=== PATIENT | male | born 1980 | race Caucasian/White ===

== ENCOUNTER 2018-09-20 06:34 | Inpatient (IN) | payer BC, OTHER ==
[2018-09-20] MEDS ORDERED: ACETAMINOPHEN 1000 MG/100 ML VIAL (NON FORMULARY) IVPB ONE ×2 (07:52→20:06)
[2018-09-20] MEDS ORDERED: SODIUM CHLORIDE 1,000 ML IV STA ×2 (07:52→14:53)
[2018-09-20] MEDS ORDERED: METOCLOPRAMIDE HCL INJECTION 10 MG/2 ML VIAL IVPB ONE (07:52)
--- NOTE | 2018-09-20 07:53 | PDOC ---
History of Present Illness - General Chief Complaint: Nausea/Vomiting Stated Complaint: VOMITING Time Seen by Provider: 09/20/18 07:46 History Source: Patient - History of Present Illness Timing/Duration: other Past History - Past Medical History Allergies/Adverse Reactions: Allergies Allergy/AdvReac Type Severity Reaction Status Date / Time No Known Allergies Allergy Verified 09/20/18 07:23 COPD: No Other medical history: DENIES - Immunization History Immunization Up to Date: No - Suicide/Smoking/Psychosocial Hx Smoking History: Never smoked Hx Alcohol Use: No Drug/Substance Use Hx: No Review of Systems - Review of Systems Constitutional: Yes: Fever, Malaise HEENTM: No: Ear Pain, Throat Pain Respiratory: Yes: Cough, Shortness of Breath. No: Hemoptysis Cardiac (ROS): No: Chest Pain ABD/GI: Yes: Nausea, Vomiting. No: Diarrhea, Abdominal cramping : No: Dysuria Neurological: Yes: Headache, Dizziness *Physical Exam - Vital Signs Last Vital Signs Temp Pulse Resp BP Pulse Ox 100.8 F H 104 H 18 133/81 96 09/20/18 07:25 09/20/18 07:25 09/20/18 07:25 09/20/18 07:25 09/20/18 07:25 - Physical Exam General Appearance: Yes: Appropriately Dressed, Mild Distress HEENT: positive: Normal ENT Inspection, Normal Voice, TMs Normal, Pharynx Normal. negative: Scleral Icterus (R), Scleral Icterus (L) Neck: positive: Supple. negative: Tender, Lymphadenopathy (R), Lymphadenopathy (L) Respiratory/Chest: positive: Lungs Clear, Normal Breath Sounds. negative: Respiratory Distress Cardiovascular: positive: S1, S2, Tachycardia Gastrointestinal/Abdominal: positive: Soft. negative: Tender Integumentary: positive: Dry, Warm Neurologic: positive: Fully Oriented, Alert, Normal Mood/Affect ED Treatment Course - LABORATORY CBC & Chemistry Diagram: 09/20/18 08:40 09/20/18 08:40 Medical Decision Making - Medical Decision Making 09/20/18 07:47 38-year-old male, denies any pmhx, here with malaise with headache, dizziness, dry cough, nausea, vomiting and fever x 1 1/-2 weeks. States he was seen in urgent care 5 days ago and diagnosed with viral syndrome. Of note, states no flu test was done. Since that visit, he has developed nausea, vomiting and fever, highest 102 F and so returns today for evaluation. Also c/o SOB now, no CP, hemoptysis, body aches, sore throat, ear pain, neck pain, photophobia, rash , facial pain or rhinorrhea. No recent travel or known sick contacts. see exam ? viral illness, r/o flu vs PNA, unlikely meningitis Exam remarkable for ill beth w/ low grade fever and mild tachycardia -pain control -antiemetic -IVF -labs -CXR -dispo pending 09/20/18 07:57 09/20/18 10:41 Leukocytosis to 18 w/ possible early infiltrate to RLL per report. Will start IV abx for CAP and admit at this time *DC/Admit/Observation/Transfer Diagnosis at time of Disposition: Pneumonia Qualifiers: Pneumonia type: due to unspecified organism Laterality: right Lung location: lower lobe of lung Qualified Code(s): J18.1 - Lobar pneumonia, unspecified organism - Discharge Dispostion Condition at time of disposition: Fair Decision to Admit order: Yes - Referrals - Patient Instructions - Post Discharge Activity
[2018-09-20 09:00] LABS: BASO % 0.5 % (0-2.0); EOS % 0.3 % (0-4.5); HEMATOCRIT 42.4 % (35.4-49); LYMPH % 10.4 % (8-40); MCH 28.6 pg (25.7-33.7); MCHC 33.1 g/dl (32.0-35.9); MEAN CELL VOLUME 86.5 fl (80-96); MEAN PLT VOLUME 7.5 fl (7.5-11.1); MONO % 10.2 % (3.8-10.2); NEUT % 78.6 % (42.8-82.8); PLATELET COUNT 362 K/MM3 (134-434); RDW 13.3 % (11.9-15.9); WHITE BLOOD COUNT 18.6 K/mm3 (4.0-10.0)
[2018-09-20 09:05] LABS: EPI CELLS 8.5 /HPF (0-5/HPF); URINE APPEARANCE CLOUDY; URINE BACTERIA 1.4 /hpf (NEGATIVE); URINE BILIRUBIN 1+ (NEGATIVE); URINE CASTS 46 /lpf (0-8); URINE COLOR DK YELLOW; URINE GLUCOSE (UA) NEGATIVE (NEGATIVE); URINE KETONE 1+ (NEGATIVE); URINE LEUK ESTERASE NEGATIVE (NEGATIVE); URINE NITRITE NEGATIVE (NEGATIVE); URINE PROTEIN 2+ (NEGATIVE); URINE RBC 5 /hpf (0-4); URINE WBC 3 /hpf (0-5)
[2018-09-20] MEDS ORDERED: METOCLOPRAMIDE HCL INJECTION 10 MG/2 ML VIAL ONE (09:13)
[2018-09-20] MEDS ORDERED: ACETAMINOPHEN INJECTION 100 ML IVPB ONE (09:14)
[2018-09-20 09:27] LABS: ALBUMIN 3.7 g/dl (3.4-5.0); ALK PHOS 88 U/L (45-117); ANION GAP 8 MMOL/L (8-16); BILIRUBIN,TOTAL 0.4 mg/dL (0.2-1); BLOOD UREA NITROGEN 13 mg/dL (7-18); CALCIUM 9.1 mg/dL (8.5-10.1); CHLORIDE 102 mmol/L (98-107); CO2 28 mmol/L (21-32); CREATININE 1.4 mg/dL (0.55-1.3); GLUCOSE,RANDOM 117 mg/dL (74-106); LIPASE 102 U/L (73-393); POTASSIUM 4.2 mmol/L (3.5-5.1); SGOT/AST 31 U/L (15-37); SGPT/ALT 32 U/L (13-61); SODIUM 137 mmol/L (136-145); TOT PROT 8.3 g/dl (6.4-8.2)
[2018-09-20] MEDS ORDERED: AZITHROMYCIN IVPB 500 MG in DEXTROSE 5%-WATER - 250 ML IVPB ONE (10:38)
[2018-09-20] MEDS ORDERED: CEFTRIAXONE 1 GM in DEXTROSE 5%-WATER - 50 ML IVPB ONE (10:38)
[2018-09-20] MEDS ORDERED: AZITHROMYCIN IVPB 500 MG/250 ML BAG IVPB ONE (10:44)
[2018-09-20] MEDS ORDERED: CEFTRIAXONE 1 GM/50 ML BAG ONE (10:45)
[2018-09-20] MEDS ORDERED: ALBUTEROL SO4 2.5/IPRATROPIUM 0.5 INH SOL 3 ML VIAL.NEB. NEB PRN (11:34)
--- NOTE | 2018-09-20 11:41 | HP ---
CHIEF COMPLAINT: cough, fever. sob, vomiting PCP: none HISTORY OF PRESENT ILLNESS: 38 y/o m with no pmh came to hospital with complaint of cough, sob and vomiting since three days. pt states that on e week ago he has sore throat with fever, headache and post nasal drip which kept ion getting worse over the period of time and 4 days ago he went to urgent care where he was diagnosed with viral infection but over last last three days he has developed non productive cough, vomiting and fever is getting worse, 102.6 documented in home. Pt also reports sob and now gets tired after walking few steps. Denies chest pain and palpitations.Pt also states that from last three days he is unable to keep any thing inside and is vomiting clear liquid which is not relevant with bouts of cough. Denies eating out, pain abdomen, diarrhoea. Denies abdominal distension. Patient states he is passing flatus. 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 Also reports headache when he coughs. Last time went to work on Wednesday. ER course was notable for: (1)cbc, cmp, (2) iv fluid 1l (3)blood culture Recent Travel: no PAST MEDICAL HISTORY: none PAST SURGICAL HISTORY: none Social History: Smoking:no Alcohol:no Drugs: no Family History: mother has breast cancer father healthy Allergies No Known Allergies Allergy (Verified 09/20/18 07:23) HOME MEDICATIONS: REVIEW OF SYSTEMS CONSTITUTIONAL: Absent: fever, chills, diaphoresis, generalized weakness, malaise, loss of appetite, weight change HEENT: Absent: rhinorrhea, nasal congestion, throat pain, throat swelling, difficulty swallowing, mouth swelling, ear pain, eye pain, visual changes CARDIOVASCULAR: Absent: chest pain, syncope, palpitations, irregular heart rate, lightheadedness , peripheral edema RESPIRATORY: Absent: cough, shortness of breath, dyspnea with exertion, orthopnea, wheezing, stridor, hemoptysis GASTROINTESTINAL: Absent: abdominal pain, abdominal distension, nausea, vomiting, diarrhea, constipation, melena, hematochezia GENITOURINARY: Absent: dysuria, frequency, urgency, hesitancy, hematuria, flank pain, genital pain MUSCULOSKELETAL: Absent: myalgia, arthralgia, joint swelling, back pain, neck pain SKIN: Absent: rash, itching, pallor ENDOCRINE: Absent: unexplained weight gain, unexplained weight loss, heat intolerance, cold intolerance NEUROLOGIC: Absent: headache, focal weakness or paresthesias, PSYCHIATRIC: Absent: anxiety, depression, PHYSICAL EXAMINATION Vital Signs - 24 hr 09/20/18 09/20/18 07:25 11:17 Temperature 100.8 F H 99.6 F Pulse Rate 104 H Pulse Rate [ 83 Left Apical] Respiratory 18 18 Rate Blood Pressure 133/81 Blood Pressure 134/83 [Left Arm] O2 Sat by Pulse 96 96 Oximetry (%) GENERAL: Awake, alert, and fully oriented, in no acute distress. HEAD: Normal with no signs of trauma. EYES: Pupils equal, round and reactive to light, extraocular movements intact, EARS, NOSE, THROAT: oropharynx clear without exudates. dry mucous membranes. nose congested, no pressure on sinuses. NECK: Normal range of motion, supple without lymphadenopathy, JVD, or masses. LUNGS: Breath sounds equal, clear to auscultation bilaterally. No wheezes, crackels present at right lower base No accessory muscle use. HEART: Regular rate and rhythm, normal S1 and S2 without murmur, rub or gallop. ABDOMEN: Soft, nontender, not distended, normoactive bowel sounds, no guarding, no rebound, no masses. MUSCULOSKELETAL: Normal range of motion at all joints. No bony deformities or tenderness. No CVA tenderness. UPPER EXTREMITIES: 2+ pulses, warm, well-perfused. No cyanosis. No clubbing. No peripheral edema. LOWER EXTREMITIES: 2+ pulses, warm, well-perfused. No calf tenderness. No peripheral edema. NEUROLOGICAL: Normal speech. Normal gait. PSYCHIATRIC: Cooperative. Good eye contact. SKIN: Warm, dry, Laboratory Results - last 24 hr 09/20/18 09/20/18 09/20/18 08:40 08:40 08:40 WBC 18.6 H RBC 4.90 Hgb 14.0 Hct 42.4 MCV 86.5 MCH 28.6 MCHC 33.1 RDW 13.3 Plt Count 362 MPV 7.5 Absolute Neuts (auto) 14.6 H Neutrophils % 78.6 Lymphocytes % 10.4 Monocytes % 10.2 Eosinophils % 0.3 Basophils % 0.5 Nucleated RBC % 0 Sodium 137 Potassium 4.2 Chloride 102 Carbon Dioxide 28 Anion Gap 8 BUN 13 Creatinine 1.4 H Creat Clearance w eGFR 56.13 Random Glucose 117 H Calcium 9.1 Total Bilirubin 0.4 AST 31 ALT 32 Alkaline Phosphatase 88 Total Protein 8.3 H Albumin 3.7 Lipase 102 Urine Color Dk yellow Urine Appearance Cloudy Urine pH 6.0 Ur Specific [place] 1.043 H Urine Protein 2+ H Urine Glucose (UA) Negative Urine Ketones 1+ H Urine Blood Negative Urine Nitrite Negative Urine Bilirubin 1+ H Urine Urobilinogen 1.0 Ur Leukocyte Esterase Negative Urine WBC (Auto) 3 Urine RBC (Auto) 5 Urine Casts (Auto) 46 U Pathogenic Cast Auto U Epithel Cells (Auto) 8.5 U Sm Round Cell (Auto) None seen Urine Bacteria (Auto) 1.4 Influenza A (Rapid) Influenza B (Rapid) 09/20/18 08:40 WBC RBC Hgb Hct MCV MCH MCHC RDW Plt Count MPV Absolute Neuts (auto) Neutrophils % Lymphocytes % Monocytes % Eosinophils % Basophils % Nucleated RBC % Sodium Potassium Chloride Carbon Dioxide Anion Gap BUN Creatinine Creat Clearance w eGFR Random Glucose Calcium Total Bilirubin AST ALT Alkaline Phosphatase Total Protein Albumin Lipase Urine Color Urine Appearance Urine pH Ur Specific [place] Urine Protein Urine Glucose (UA) Urine Ketones Urine Blood Urine Nitrite Urine Bilirubin Urine Urobilinogen Ur Leukocyte Esterase Urine WBC (Auto) Urine RBC (Auto) Urine Casts (Auto) U Pathogenic Cast Auto U Epithel Cells (Auto) U Sm Round Cell (Auto) Urine Bacteria (Auto) Influenza A (Rapid) Negative Influenza B (Rapid) Negative ASSESSMENT/PLAN: 38 y/o m with no pmh came to hospital with complaint of cough, sob and vomiting since three days found to have sepsis from CAP Sepsis secondary to CAP or pneumonia post viral infection. elevated wbc, fever, infiltrate on xray, ankush Iv antibiotic azithromycin and ceftriaxone monitor vitals monitor intake/ output IV fluid as per sepsis protocol. Lactic acid pending. blood culture. urine antigen for legionella and strep incentive spirometry duoneb prn flonase for nasal congestion. ANKUSH likely prerenal as pt is vomiting as is unable to eat or drink from 2-3 days IV fluid avoid nephrotoxic drugs NSAID monitor cr No need for urine studies for now Vomiting likely viral zofran prn iv fluid full liquid diet and slowly advance as he tolerates Fluid: NS after boluses start 125 ml/hr electrolyte: repeat in am Nutrition: full liquid diet dvt pro: pt ambulatory, scd while resting Gi pro: ppi dispo: med surg Visit type - Emergency Visit Emergency Visit: Yes ED Registration Date: 09/20/18 Care time: The patient presented to the Emergency Department on the above date and was hospitalized for further evaluation of their emergent condition. - New Patient This patient is new to me today: Yes Date on this admission: 09/20/18 - Critical Care Critical Care patient: No
[2018-09-20] MEDS ORDERED: ONDANSETRON 4 MG/2 ML VIAL IVPB PRN (11:57)
[2018-09-20] MEDS: SODIUM CHLORIDE 1,000 ML IV SCH (13:13)
[2018-09-20] MEDS ORDERED: BENZOCAINE/MENTH/CETYLPYRD CL 1 EACH LOZENGE MM PRN (13:32)
--- NOTE | 2018-09-20 13:46 | EKG ---
Test Reason : Blood Pressure : / mmHG Vent. Rate : 089 BPM Atrial Rate : 089 BPM P-R Int : 140 ms QRS Dur : 094 ms QT Int : 358 ms P-R-T Axes : 052 025 011 degrees QTc Int : 435 ms NORMAL SINUS RHYTHM NORMAL ECG NO PREVIOUS ECGS AVAILABLE Confirmed by Ehsan Flores MD ([id number]) on 09/20/2018 1:46:19 PM Referred By: Confirmed By:Ehsan Flores MD
--- NOTE | 2018-09-20 14:53 | PN ---
Teaching Attending Note Name of Resident: Ulises Kendall ATTENDING PHYSICIAN STATEMENT I saw and evaluated the patient. I reviewed the resident's note and discussed the case with the resident. I agree with the resident's findings and plan as documented. SUBJECTIVE: Still feels lethargic, cough +, blood tinged sputum. Vomiting - no hematemesis. No abdominal pain. OBJECTIVE: Febrile, Tmax 100.8. Hemodynamically Stable Last Vital Signs Temp Pulse Resp BP Pulse Ox 100.2 F H 106 H 18 151/92 96 09/20/18 13:13 09/20/18 13:13 09/20/18 13:13 09/20/18 13:13 09/20/18 11:17 HEENT - Atraumatic, Normocephalic Heart - S1, S2, RRR Lungs - decreased air entry R base Abdomen - soft, non-tender. Bowel Sounds normal. Extremities - no edema, no calf tenderness Laboratory Results - last 24 hr 09/20/18 09/20/18 09/20/18 08:40 08:40 08:40 WBC 18.6 H RBC 4.90 Hgb 14.0 Hct 42.4 MCV 86.5 MCH 28.6 MCHC 33.1 RDW 13.3 Plt Count 362 MPV 7.5 Absolute Neuts (auto) 14.6 H Neutrophils % 78.6 Lymphocytes % 10.4 Monocytes % 10.2 Eosinophils % 0.3 Basophils % 0.5 Nucleated RBC % 0 Sodium 137 Potassium 4.2 Chloride 102 Carbon Dioxide 28 Anion Gap 8 BUN 13 Creatinine 1.4 H Creat Clearance w eGFR 56.13 Random Glucose 117 H Lactic Acid Calcium 9.1 Total Bilirubin 0.4 AST 31 ALT 32 Alkaline Phosphatase 88 Total Protein 8.3 H Albumin 3.7 Lipase 102 Urine Color Dk yellow Urine Appearance Cloudy Urine pH 6.0 Ur Specific [place] 1.043 H Urine Protein 2+ H Urine Glucose (UA) Negative Urine Ketones 1+ H Urine Blood Negative Urine Nitrite Negative Urine Bilirubin 1+ H Urine Urobilinogen 1.0 Ur Leukocyte Esterase Negative Urine WBC (Auto) 3 Urine RBC (Auto) 5 Urine Casts (Auto) 46 U Pathogenic Cast Auto U Epithel Cells (Auto) 8.5 U Sm Round Cell (Auto) None seen Urine Bacteria (Auto) 1.4 Influenza A (Rapid) Influenza B (Rapid) 09/20/18 09/20/18 08:40 11:20 WBC RBC Hgb Hct MCV MCH MCHC RDW Plt Count MPV Absolute Neuts (auto) Neutrophils % Lymphocytes % Monocytes % Eosinophils % Basophils % Nucleated RBC % Sodium Potassium Chloride Carbon Dioxide Anion Gap BUN Creatinine Creat Clearance w eGFR Random Glucose Lactic Acid 1.1 Calcium Total Bilirubin AST ALT Alkaline Phosphatase Total Protein Albumin Lipase Urine Color Urine Appearance Urine pH Ur Specific [place] Urine Protein Urine Glucose (UA) Urine Ketones Urine Blood Urine Nitrite Urine Bilirubin Urine Urobilinogen Ur Leukocyte Esterase Urine WBC (Auto) Urine RBC (Auto) Urine Casts (Auto) U Pathogenic Cast Auto U Epithel Cells (Auto) U Sm Round Cell (Auto) Urine Bacteria (Auto) Influenza A (Rapid) Negative Influenza B (Rapid) Negative Current Medications Generic Name Dose Route Start Last Admin Trade Name Freq PRN Reason Stop Dose Admin Acetaminophen 650 mg 09/20/18 11:34 Tylenol - PO Q6H PRN FEVER Albuterol/Ipratropium 1 amp 09/20/18 11:34 Duoneb - NEB Q4H PRN SHORTNESS OF BREATH Benzocaine/Menthol 2 each 09/20/18 13:32 Cepacol Lozenge - MM PRN PRN SORE THROAT Fluticasone Propionate 1 spray 09/20/18 13:00 Flonase - NS BID [facility] Guaifenesin 10 ml 09/20/18 13:32 Robitussin - PO Q6H PRN COUGH Azithromycin 500 mg in 250 mls @ 250 mls/hr 09/21/18 10:00 Zithromax 500mg Ivpb (Pre-Docked) IVPB DAILY [facility] Ceftriaxone Sodium 1 gm/ 50 mls @ 100 mls/hr 09/21/18 10:00 Dextrose IVPB DAILY [facility] Protocol Sodium Chloride 1,000 mls @ 125 mls/hr 09/20/18 12:30 Normal Saline - IV ASDIR [facility] Ondansetron HCl 8 mg 09/20/18 11:57 Zofran Injection IVPB Q8H PRN [facility] Ranitidine HCl 150 mg 09/20/18 22:00 Zantac - PO BID [facility] ASSESSMENT AND PLAN: 38 year old male with no significant PMH presented with increasing dyspnea, cough, vomiting for 3 days on backgroud upper respiratory tract symptoms for the week before. 1. Sepsis secondary to Community Acquired Pneumonia CXR - R basal infiltrate Fever, Tmax 100.8, leukocytosis, WBC 18, HR > 100 Lactate 1.1 Flu negative Urine legionella/Strep Ag pending. Will treat with Ceftriaxone/Azithromycin IV hydration/anti-emetic. 2. ANKUSH - likely pre-renal due to dehydration IV fluids Will monitor renal function. If any deterioration, will order renal imaging. DVT Px - Lovenox SQ
[2018-09-20] MEDS: guaiFENesin 200 MG/10 ML 10 ML UNIT-DOSE CUPS PO PRN ×2 (15:12→20:15)
[2018-09-20] MEDS: ACETAMINOPHEN 325 MG TABLET (FP) PO PRN (16:49)
[2018-09-20] MEDS: FLUTICASONE PROP 0.05% 16 GM NASAL SPRAY NS SCH ×2 (16:50→21:26)
[2018-09-20] MEDS ORDERED: PT OWN MED DRAWER 7, Y5N ONE (21:03)
[2018-09-20] MEDS: RANITIDINE HCL 150 MG TABLET (FP) PO SCH (21:26)
[2018-09-21] MEDS ORDERED: IBUPROFEN 400 MG TABLET (FP) PO ONE (00:29)
[2018-09-21 08:08] LABS: BASO % 0.4 % (0-2.0); EOS % 1.4 % (0-4.5); HEMATOCRIT 34.6 % (35.4-49); HEMOGLOBIN 11.6 GM/dL (11.7-16.9); LYMPH % 16.2 % (8-40); MCH 28.9 pg (25.7-33.7); MCHC 33.4 g/dl (32.0-35.9); MEAN CELL VOLUME 86.6 fl (80-96); MEAN PLT VOLUME 7.3 fl (7.5-11.1); MONO % 12.4 % (3.8-10.2); NEUT % 69.6 % (42.8-82.8); PLATELET COUNT 293 K/MM3 (134-434); RBC 3.99 M/mm3 (4.00-5.60); RDW 13.6 % (11.9-15.9); WHITE BLOOD COUNT 13.7 K/mm3 (4.0-10.0)
--- NOTE | 2018-09-21 08:16 | PN ---
Physical Exam: SUBJECTIVE: Patient seen and examined at bedside- patient still had fevers overnight which responded to tylenol and motrin; he states he is feeling better - still having some trouble breathing and a dry cough but denies any CP/N/V no diarrhea OBJECTIVE: Vital Signs Period Temp Pulse Resp BP Sys/Lopez Pulse Ox Last 24 Hr 97.8 F-103.1 F 83-120 18-18 129-152/79-92 93-96 GENERAL: The patient is awake, alert, and fully oriented, in no acute distress. EYES:PEERLA: EOMI; no scleral icterus . NECK: no JVD; no lymphadenopathy LUNGS:slight coarse breath sounds at the bases; no rales, rhonchi. HEART: Regular rate and rhythm, S1, S2 without murmur, rub or gallop. ABDOMEN: Soft, nontender, nondistended, normoactive bowel sounds, no guarding, no rebound, no hepatosplenomegaly, no masses. EXTREMITIES: 2+ pulses, warm, well-perfused, no edema. NEUROLOGICAL: Cranial nerves II through XII grossly intact. Normal speech, gait not observed. PSYCH: Normal mood, normal affect. SKIN: Warm, dry, normal turgor, no rashes or lesions noted Laboratory Results - last 24 hr 09/20/18 09/20/18 09/20/18 08:40 08:40 08:40 WBC 18.6 H RBC 4.90 Hgb 14.0 Hct 42.4 MCV 86.5 MCH 28.6 MCHC 33.1 RDW 13.3 Plt Count 362 MPV 7.5 Absolute Neuts (auto) 14.6 H Neutrophils % 78.6 Lymphocytes % 10.4 Monocytes % 10.2 Eosinophils % 0.3 Basophils % 0.5 Nucleated RBC % 0 Sodium 137 Potassium 4.2 Chloride 102 Carbon Dioxide 28 Anion Gap 8 BUN 13 Creatinine 1.4 H Creat Clearance w eGFR 56.13 Random Glucose 117 H Lactic Acid Calcium 9.1 Total Bilirubin 0.4 AST 31 ALT 32 Alkaline Phosphatase 88 Total Protein 8.3 H Albumin 3.7 Lipase 102 Urine Color Dk yellow Urine Appearance Cloudy Urine pH 6.0 Ur Specific [place] 1.043 H Urine Protein 2+ H Urine Glucose (UA) Negative Urine Ketones 1+ H Urine Blood Negative Urine Nitrite Negative Urine Bilirubin 1+ H Urine Urobilinogen 1.0 Ur Leukocyte Esterase Negative Urine WBC (Auto) 3 Urine RBC (Auto) 5 Urine Casts (Auto) 46 U Pathogenic Cast Auto U Epithel Cells (Auto) 8.5 U Sm Round Cell (Auto) None seen Urine Bacteria (Auto) 1.4 Influenza A (Rapid) Influenza B (Rapid) 09/20/18 09/20/18 09/21/18 08:40 11:20 07:45 WBC 13.7 H RBC 3.99 L Hgb 11.6 L Hct 34.6 L D MCV 86.6 MCH 28.9 MCHC 33.4 RDW 13.6 Plt Count 293 MPV 7.3 L Absolute Neuts (auto) 9.6 H Neutrophils % 69.6 Lymphocytes % 16.2 D Monocytes % 12.4 H Eosinophils % 1.4 D Basophils % 0.4 Nucleated RBC % 0 Sodium Potassium Chloride Carbon Dioxide Anion Gap BUN Creatinine Creat Clearance w eGFR Random Glucose Lactic Acid 1.1 Calcium Total Bilirubin AST ALT Alkaline Phosphatase Total Protein Albumin Lipase Urine Color Urine Appearance Urine pH Ur Specific [place] Urine Protein Urine Glucose (UA) Urine Ketones Urine Blood Urine Nitrite Urine Bilirubin Urine Urobilinogen Ur Leukocyte Esterase Urine WBC (Auto) Urine RBC (Auto) Urine Casts (Auto) U Pathogenic Cast Auto U Epithel Cells (Auto) U Sm Round Cell (Auto) Urine Bacteria (Auto) Influenza A (Rapid) Negative Influenza B (Rapid) Negative Active Medications Generic Name Dose Route Start Last Admin Trade Name Freq PRN Reason Stop Dose Admin Acetaminophen 650 mg 09/20/18 11:34 09/20/18 16:49 Tylenol - PO 650 mg Q6H PRN Administration FEVER Albuterol/Ipratropium 1 amp 09/20/18 11:34 Duoneb - NEB Q4H PRN SHORTNESS OF BREATH Benzocaine/Menthol 2 each 09/20/18 13:32 Cepacol Lozenge - MM PRN PRN SORE THROAT Enoxaparin Sodium 40 mg 09/21/18 10:00 Lovenox - SQ DAILY [facility] Fluticasone Propionate 1 spray 09/20/18 13:00 09/20/18 21:26 Flonase - NS 1 spray BID [facility] Administration Guaifenesin 10 ml 09/20/18 13:32 09/20/18 20:15 Robitussin - PO 10 ml Q6H PRN Administration COUGH Azithromycin 500 mg in 250 mls @ 250 mls/hr 09/21/18 10:00 Zithromax 500mg Ivpb (Pre-Docked) IVPB DAILY [facility] Ceftriaxone Sodium 1 gm/ 50 mls @ 100 mls/hr 09/21/18 10:00 Dextrose IVPB DAILY [facility] Protocol Sodium Chloride 1,000 mls @ 125 mls/hr 09/20/18 12:30 09/20/18 13:13 Normal Saline - IV 125 mls/hr ASDIR [facility] Administration Ondansetron HCl 8 mg 09/20/18 11:57 09/20/18 15:13 Zofran Injection IVPB 8 mg Q8H PRN Administration NAUSEA Ranitidine HCl 150 mg 09/20/18 22:00 09/20/18 21:26 Zantac - PO 150 mg BID [facility] Administration ASSESSMENT/PLAN: 38 y/o m with no pmh came to hospital with complaint of cough, sob and vomiting since three days found to have sepsis from CAP Sepsis secondary to CAP or pneumonia post viral infection. Iv antibiotic azithromycin and ceftriaxone day 2 monitor vitals blood cultures pending urine antigen for legionella and strep pending incentive spirometry duoneb prn flonase for nasal congestion. ANKUSH resolved: Cr now 1.1 Vomiting imrpoving zofran prn iv fluid full liquid diet and slowly advance as he tolerates NS@125mls/hr monitor electrolytes full liquid diet Problem List - Problems (1) Pneumonia Code(s): J18.9 - PNEUMONIA, UNSPECIFIED ORGANISM Qualifiers: Pneumonia type: due to unspecified organism Laterality: right Lung location: lower lobe of lung Qualified Code(s): J18.1 - Lobar pneumonia, unspecified organism Visit type - Emergency Visit Emergency Visit: Yes ED Registration Date: 09/20/18 Care time: The patient presented to the Emergency Department on the above date and was hospitalized for further evaluation of their emergent condition. - New Patient This patient is new to me today: Yes Date on this admission: 09/21/18 - Critical Care Critical Care patient: No
[2018-09-21 08:52] LABS: ALBUMIN 2.7 g/dl (3.4-5.0); ALK PHOS 63 U/L (45-117); ANION GAP 6 MMOL/L (8-16); BILIRUBIN,TOTAL 0.3 mg/dL (0.2-1); BLOOD UREA NITROGEN 9 mg/dL (7-18); CALCIUM 7.9 mg/dL (8.5-10.1); CHLORIDE 105 mmol/L (98-107); CO2 27 mmol/L (21-32); CREATININE 1.1 mg/dL (0.55-1.3); GLUCOSE,RANDOM 102 mg/dL (74-106); MAGNESIUM 1.9 mg/dL (1.8-2.4); PHOSPHOROUS 2.3 mg/dL (2.5-4.9); POTASSIUM 3.6 mmol/L (3.5-5.1); SGOT/AST 28 U/L (15-37); SGPT/ALT 27 U/L (13-61); SODIUM 138 mmol/L (136-145); TOT PROT 6.2 g/dl (6.4-8.2)
[2018-09-21] MEDS ORDERED: cefTRIAXone SODIUM 1 GM VIAL ONE (09:08)
[2018-09-21] MEDS ORDERED: DEXTROSE 5%-WATER - 50 ML IVPB ONE (09:08)
[2018-09-21] MEDS: ENOXAPARIN NA (PORCINE) 40 MG/0.4 ML DISP.SYRIN SQ SCH (09:24)
[2018-09-21] MEDS: CEFTRIAXONE 1 GM in DEXTROSE 5%-WATER - 50 ML IVPB SCH (09:25)
[2018-09-21] MEDS: AZITHROMYCIN IVPB 500 MG/250 ML BAG IVPB SCH (09:25)
[2018-09-21] MEDS: RANITIDINE HCL 150 MG TABLET (FP) PO SCH ×2 (09:26→21:17)
[2018-09-21] MEDS: FLUTICASONE PROP 0.05% 16 GM NASAL SPRAY NS SCH ×2 (09:27→21:17)
[2018-09-21] MEDS: guaiFENesin 200 MG/10 ML 10 ML UNIT-DOSE CUPS PO PRN ×2 (10:59→22:53)
[2018-09-21] MEDS: ACETAMINOPHEN 325 MG TABLET (FP) PO PRN (13:06)
[2018-09-21] MEDS: SODIUM CHLORIDE 1,000 ML IV SCH ×2 (13:06→17:24)
[2018-09-21] MEDS: IBUPROFEN 400 MG TABLET (FP) PO PRN (14:22)
--- NOTE | 2018-09-21 15:50 | PN ---
Teaching Attending Note Name of Resident: Yesi Longo ATTENDING PHYSICIAN STATEMENT I saw and evaluated the patient. I reviewed the resident's note and discussed the case with the resident. I agree with the resident's findings and plan as documented. SUBJECTIVE: Feels more energetic, less lethargic. Ongoing cough +, blood tinged sputum resolved, now dry. No further vomiting episodes. OBJECTIVE: Febrile, Tmax 103 overnight. Hemodynamically Stable Last Vital Signs Temp Pulse Resp BP Pulse Ox 100.2 F H 91 H 18 135/90 93 L 09/21/18 14:25 09/21/18 14:25 09/21/18 14:25 09/21/18 14:25 09/20/18 21:00 Heart - S1, S2, RRR Lungs - good air entry bilaterally - no crackles/wheeze. Abdomen - soft, non-tender. Bowel Sounds normal. Extremities - no edema, no calf tenderness Laboratory Results - last 24 hr 09/21/18 09/21/18 07:45 07:45 WBC 13.7 H RBC 3.99 L Hgb 11.6 L Hct 34.6 L D MCV 86.6 MCH 28.9 MCHC 33.4 RDW 13.6 Plt Count 293 MPV 7.3 L Absolute Neuts (auto) 9.6 H Neutrophils % 69.6 Lymphocytes % 16.2 D Monocytes % 12.4 H Eosinophils % 1.4 D Basophils % 0.4 Nucleated RBC % 0 Sodium 138 Potassium 3.6 Chloride 105 Carbon Dioxide 27 Anion Gap 6 L BUN 9 Creatinine 1.1 Creat Clearance w eGFR 74.14 Random Glucose 102 Calcium 7.9 L Phosphorus 2.3 L Magnesium 1.9 Total Bilirubin 0.3 AST 28 ALT 27 Alkaline Phosphatase 63 Total Protein 6.2 L Albumin 2.7 L Current Medications Generic Name Dose Route Start Last Admin Trade Name Freq PRN Reason Stop Dose Admin Acetaminophen 650 mg 09/20/18 11:34 09/21/18 13:06 Tylenol - PO 650 mg Q6H PRN Administration FEVER Albuterol/Ipratropium 1 amp 09/20/18 11:34 Duoneb - NEB Q4H PRN SHORTNESS OF BREATH Benzocaine/Menthol 2 each 09/20/18 13:32 Cepacol Lozenge - MM PRN PRN SORE THROAT Enoxaparin Sodium 40 mg 09/21/18 10:00 09/21/18 09:24 Lovenox - SQ 40 mg DAILY [facility] Administration Fluticasone Propionate 1 spray 09/20/18 13:00 09/21/18 09:27 Flonase - NS 1 spray BID [facility] Administration Guaifenesin 10 ml 09/20/18 13:32 09/21/18 10:59 Robitussin - PO 10 ml Q6H PRN Administration COUGH Azithromycin 500 mg in 250 mls @ 250 mls/hr 09/21/18 10:00 09/21/18 09:25 Zithromax 500mg Ivpb (Pre-Docked) IVPB 250 mls/hr DAILY [facility] Administration Ceftriaxone Sodium 1 gm/ 50 mls @ 100 mls/hr 09/21/18 10:00 09/21/18 09:25 Dextrose IVPB 100 mls/hr DAILY [facility] Administration Protocol Sodium Chloride 1,000 mls @ 125 mls/hr 09/20/18 12:30 09/21/18 13:06 Normal Saline - IV Not Given ASDIR [facility] Ibuprofen 400 mg 09/21/18 13:14 09/21/18 14:22 Motrin - PO 400 mg Q6H PRN Administration FEVER Ondansetron HCl 8 mg 09/20/18 11:57 09/20/18 15:13 Zofran Injection IVPB 8 mg Q8H PRN Administration NAUSEA Ranitidine HCl 150 mg 09/20/18 22:00 09/21/18 09:26 Zantac - PO 150 mg BID [facility] Administration ASSESSMENT AND PLAN: 38 year old male with no significant PMH presented with increasing dyspnea, cough, vomiting for 3 days on background upper respiratory tract symptoms for the week before. 1. Sepsis secondary to Community Acquired Pneumonia CXR - R basal infiltrate Fever, Tmax 103, leukocytosis, WBC 18 ---> 13.7, Tachycardia resolved. Lactate 1.1 Flu negative Urine legionella/Strep Ag negative Continue Ceftriaxone/Azithromycin IV hydration/anti-emetic. 2. ANKUSH - likely pre-renal due to dehydration - resolved with IV fluids. 3. Hypophosphatemia -will replete. DVT Px - Lovenox SQ
[2018-09-21] MEDS ORDERED: POTASSIUM PHOSPHATE 15 MM in SODIUM CHLORIDE 250 ML IVPB ONE (15:53)
[2018-09-22] MEDS: IBUPROFEN 400 MG TABLET (FP) PO PRN ×2 (00:35→14:19)
[2018-09-22] MEDS: ACETAMINOPHEN 325 MG TABLET (FP) PO PRN (02:32)
[2018-09-22 07:07] LABS: HEMATOCRIT 32.1 % (35.4-49); HEMOGLOBIN 10.9 GM/dL (11.7-16.9); MCH 29.3 pg (25.7-33.7); MCHC 33.9 g/dl (32.0-35.9); MEAN CELL VOLUME 86.2 fl (80-96); MEAN PLT VOLUME 7.4 fl (7.5-11.1); PLATELET COUNT 302 K/MM3 (134-434); RBC 3.72 M/mm3 (4.00-5.60); WHITE BLOOD COUNT 11.2 K/mm3 (4.0-10.0)
[2018-09-22 07:44] LABS: CALCIUM 7.8 mg/dL (8.5-10.1); CREATININE 0.9 mg/dL (0.55-1.3); MAGNESIUM 2.1 mg/dL (1.8-2.4); PHOSPHOROUS 3.1 mg/dL (2.5-4.9); POTASSIUM 3.9 mmol/L (3.5-5.1)
--- NOTE | 2018-09-22 08:35 | PN ---
Physical Exam: SUBJECTIVE: Patient seen and examined at bedside- patient states that he is still feeling short of breath but improving; he is bringing up sputum when he coughs; he still had a fever of 100.9 overnight OBJECTIVE: Vital Signs Period Temp Pulse Resp BP Sys/Lopez Pulse Ox Last 24 Hr 98.4 F-100.9 F 74-92 18-20 123-147/80-90 98-98 GENERAL: The patient is awake, alert, and fully oriented, in slight acute distress.. PEERLA: EOMI; no scleral icterus LUNGS: coarse bretah sounds thoroughout HEART: Regular rate and rhythm, S1, S2 without murmur, rub or gallop. ABDOMEN: Soft, nontender, nondistended, normoactive bowel sounds, no guarding, no rebound, no hepatosplenomegaly, no masses. EXTREMITIES: 2+ pulses, warm, well-perfused, no edema. PSYCH: Normal mood, normal affect. SKIN: Warm, dry, normal turgor, no rashes or lesions noted Laboratory Results - last 24 hr 09/21/18 09/22/18 09/22/18 07:45 06:00 06:00 WBC 11.2 H RBC 3.72 L Hgb 10.9 L Hct 32.1 L MCV 86.2 MCH 29.3 MCHC 33.9 RDW 14.0 Plt Count 302 MPV 7.4 L Sodium 138 137 Potassium 3.6 3.9 Chloride 105 104 Carbon Dioxide 27 30 Anion Gap 6 L 3 L BUN 9 8 Creatinine 1.1 0.9 Creat Clearance w eGFR 74.14 Est GFR (CKD-EPI)AfAm 123.39 Est GFR (CKD-EPI)NonAf 106.46 Random Glucose 102 87 Calcium 7.9 L 7.8 L Phosphorus 2.3 L 3.1 Magnesium 1.9 2.1 Total Bilirubin 0.3 AST 28 ALT 27 Alkaline Phosphatase 63 Total Protein 6.2 L Albumin 2.7 L Active Medications Generic Name Dose Route Start Last Admin Trade Name Freq PRN Reason Stop Dose Admin Acetaminophen 650 mg 09/20/18 11:34 09/22/18 02:32 Tylenol - PO 650 mg Q6H PRN Administration FEVER Albuterol/Ipratropium 1 amp 09/20/18 11:34 Duoneb - NEB Q4H PRN SHORTNESS OF BREATH Benzocaine/Menthol 2 each 09/20/18 13:32 Cepacol Lozenge - MM PRN PRN SORE THROAT Enoxaparin Sodium 40 mg 09/21/18 10:00 09/21/18 09:24 Lovenox - SQ 40 mg DAILY BONILLA Administration Fluticasone Propionate 1 spray 09/20/18 13:00 09/21/18 21:17 Flonase - NS Not Given BID BONILLA Guaifenesin 10 ml 09/20/18 13:32 09/21/18 22:53 Robitussin - PO 10 ml Q6H PRN Administration COUGH Azithromycin 500 mg in 250 mls @ 250 mls/hr 09/21/18 10:00 09/21/18 09:25 Zithromax 500mg Ivpb (Pre-Docked) IVPB 250 mls/hr DAILY BONILLA Administration Ceftriaxone Sodium 1 gm/ 50 mls @ 100 mls/hr 09/21/18 10:00 09/21/18 09:25 Dextrose IVPB 100 mls/hr DAILY BONILLA Administration Protocol Sodium Chloride 1,000 mls @ 125 mls/hr 09/20/18 12:30 09/21/18 17:24 Normal Saline - IV 125 mls/hr ASDIR BONILLA Administration Ibuprofen 400 mg 09/21/18 13:14 09/22/18 00:35 Motrin - PO 400 mg Q6H PRN Administration FEVER Ondansetron HCl 8 mg 09/20/18 11:57 09/20/18 15:13 Zofran Injection IVPB 8 mg Q8H PRN Administration NAUSEA Ranitidine HCl 150 mg 09/20/18 22:00 09/21/18 21:17 Zantac - PO Not Given BID [facility] ASSESSMENT/PLAN: 38 y/o m with no pmh came to hospital with complaint of cough, sob and vomiting since three days found to have sepsis from CAP Sepsis secondary to CAP or pneumonia post viral infection. Iv antibiotic azithromycin and ceftriaxone day 3 monitor vitals blood cultures negative sputum cx urine antigen for legionella and strep negative incentive spirometry duoneb prn flonase for nasal congestion. ANKUSH resolved: Cr now 1.1 Vomiting imrpoving zofran prn iv fluid full liquid diet and slowly advance as he tolerates NS@125mls/hr monitor electrolytes full liquid diet Problem List - Problems (1) Pneumonia Code(s): J18.9 - PNEUMONIA, UNSPECIFIED ORGANISM Qualifiers: Pneumonia type: due to unspecified organism Laterality: right Lung location: lower lobe of lung Qualified Code(s): J18.1 - Lobar pneumonia, unspecified organism Visit type - Emergency Visit Emergency Visit: Yes ED Registration Date: 09/20/18 Care time: The patient presented to the Emergency Department on the above date and was hospitalized for further evaluation of their emergent condition. - New Patient This patient is new to me today: No - Critical Care Critical Care patient: No
[2018-09-22] MEDS ORDERED: DEXTROSE 5%-WATER - 50 ML IVPB ONE (09:38)
[2018-09-22] MEDS ORDERED: cefTRIAXone SODIUM 1 GM VIAL ONE (09:38)
[2018-09-22] MEDS: SODIUM CHLORIDE 1,000 ML IV SCH ×2 (09:43→14:19)
[2018-09-22] MEDS: ENOXAPARIN NA (PORCINE) 40 MG/0.4 ML DISP.SYRIN SQ SCH (09:43)
[2018-09-22] MEDS: CEFTRIAXONE 1 GM in DEXTROSE 5%-WATER - 50 ML IVPB SCH (09:44)
[2018-09-22] MEDS: AZITHROMYCIN IVPB 500 MG/250 ML BAG IVPB SCH (09:44)
[2018-09-22] MEDS: guaiFENesin 200 MG/10 ML 10 ML UNIT-DOSE CUPS PO PRN ×2 (09:45→18:17)
[2018-09-22] MEDS: RANITIDINE HCL 150 MG TABLET (FP) PO SCH ×2 (09:45→22:04)
[2018-09-22] MEDS: FLUTICASONE PROP 0.05% 16 GM NASAL SPRAY NS SCH ×2 (09:46→22:05)
[2018-09-22 12:00] VITALS: BMI 30.4
--- NOTE | 2018-09-22 15:08 | PN ---
Teaching Attending Note Name of Resident: Yesi Longo ATTENDING PHYSICIAN STATEMENT I saw and evaluated the patient. I reviewed the resident's note and discussed the case with the resident. I agree with the resident's findings and plan as documented. SUBJECTIVE: Ongoing cough +, blood tinged sputum resolved. No further vomiting episodes. OBJECTIVE: Febrile, Tmax 100.9 overnight. Hemodynamically Stable Last Vital Signs Temp Pulse Resp BP Pulse Ox 97.7 F 78 18 131/90 99 09/22/18 08:58 09/22/18 08:58 09/22/18 08:58 09/22/18 08:58 09/22/18 09:00 Heart - S1, S2, RRR Lungs - good air entry bilaterally - no crackles/wheeze. Abdomen - soft, non-tender. Bowel Sounds normal. Extremities - no edema, no calf tenderness Laboratory Results - last 24 hr 09/22/18 09/22/18 06:00 06:00 WBC 11.2 H RBC 3.72 L Hgb 10.9 L Hct 32.1 L MCV 86.2 MCH 29.3 MCHC 33.9 RDW 14.0 Plt Count 302 MPV 7.4 L Sodium 137 Potassium 3.9 Chloride 104 Carbon Dioxide 30 Anion Gap 3 L BUN 8 Creatinine 0.9 Est GFR (CKD-EPI)AfAm 123.39 Est GFR (CKD-EPI)NonAf 106.46 Random Glucose 87 Calcium 7.8 L Phosphorus 3.1 Magnesium 2.1 Current Medications Generic Name Dose Route Start Last Admin Trade Name Freq PRN Reason Stop Dose Admin Acetaminophen 650 mg 09/20/18 11:34 09/22/18 02:32 Tylenol - PO 650 mg Q6H PRN Administration FEVER Albuterol/Ipratropium 1 amp 09/20/18 11:34 Duoneb - NEB Q4H PRN SHORTNESS OF BREATH Benzocaine/Menthol 2 each 09/20/18 13:32 Cepacol Lozenge - MM PRN PRN SORE THROAT Enoxaparin Sodium 40 mg 09/21/18 10:00 09/22/18 09:43 Lovenox - SQ 40 mg DAILY BONILLA Administration Fluticasone Propionate 1 spray 09/20/18 13:00 09/22/18 09:46 Flonase - NS 1 spray BID BONILLA Administration Guaifenesin 10 ml 09/20/18 13:32 09/22/18 09:45 Robitussin - PO 10 ml Q6H PRN Administration COUGH Azithromycin 500 mg in 250 mls @ 250 mls/hr 09/21/18 10:00 09/22/18 09:44 Zithromax 500mg Ivpb (Pre-Docked) IVPB 250 mls/hr DAILY BONILLA Administration Ceftriaxone Sodium 1 gm/ 50 mls @ 100 mls/hr 09/21/18 10:00 09/22/18 09:44 Dextrose IVPB 100 mls/hr DAILY BONILLA Administration Protocol Sodium Chloride 1,000 mls @ 125 mls/hr 09/20/18 12:30 09/22/18 14:19 Normal Saline - IV Not Given ASDIR BONILLA Ibuprofen 400 mg 09/21/18 13:14 09/22/18 14:19 Motrin - PO 400 mg Q6H PRN Administration FEVER Ondansetron HCl 8 mg 09/20/18 11:57 09/20/18 15:13 Zofran Injection IVPB 8 mg Q8H PRN Administration NAUSEA Ranitidine HCl 150 mg 09/20/18 22:00 09/22/18 09:45 Zantac - PO 150 mg BID BONILLA Administration ASSESSMENT AND PLAN: 38 year old male with no significant PMH presented with increasing dyspnea, cough, vomiting for 3 days on background upper respiratory tract symptoms for the week before. 1. Sepsis secondary to Community Acquired Pneumonia CXR - R basal infiltrate Fever, Tmax 103 on admisison, 100.9 overnight, leukocytosis, WBC 18 ---> 11.2, Tachycardia resolved. Lactate 1.1 Flu negative Urine legionella/Strep Ag negative Continue Ceftriaxone/Azithromycin IV hydration ongoing. 2. ANKUSH - likely pre-renal due to dehydration - resolved with IV fluids. 3. Hypophosphatemia - repleted. DVT Px - Lovenox SQ
[2018-09-23 07:26] LABS: HEMATOCRIT 32.9 % (35.4-49); HEMOGLOBIN 11.1 GM/dL (11.7-16.9); MCH 29.1 pg (25.7-33.7); MCHC 33.6 g/dl (32.0-35.9); MEAN CELL VOLUME 86.6 fl (80-96); MEAN PLT VOLUME 7.6 fl (7.5-11.1); PLATELET COUNT 339 K/MM3 (134-434); WHITE BLOOD COUNT 9.3 K/mm3 (4.0-10.0)
[2018-09-23 07:52] LABS: CREATININE 0.8 mg/dL (0.55-1.3); POTASSIUM 3.9 mmol/L (3.5-5.1)
[2018-09-23] MEDS ORDERED: cefTRIAXone SODIUM 1 GM VIAL ONE (10:02)
[2018-09-23] MEDS ORDERED: DEXTROSE 5%-WATER - 50 ML IVPB ONE (10:02)
[2018-09-23] MEDS: ENOXAPARIN NA (PORCINE) 40 MG/0.4 ML DISP.SYRIN SQ SCH (10:49)
[2018-09-23] MEDS: AZITHROMYCIN IVPB 500 MG/250 ML BAG IVPB SCH (10:49)
[2018-09-23] MEDS: CEFTRIAXONE 1 GM in DEXTROSE 5%-WATER - 50 ML IVPB SCH (10:49)
[2018-09-23] MEDS: FLUTICASONE PROP 0.05% 16 GM NASAL SPRAY NS SCH (10:50)
[2018-09-23] MEDS: RANITIDINE HCL 150 MG TABLET (FP) PO SCH (10:50)
[2018-09-23] MEDS: guaiFENesin 200 MG/10 ML 10 ML UNIT-DOSE CUPS PO PRN (10:50)
--- NOTE | 2018-09-23 12:07 | DS ---
Physical Exam: SUBJECTIVE: Patient seen and examined at bedside- no acute events overnight' patient states he is feeling better though still having some slight shortness of breath OBJECTIVE: Vital Signs Period Temp Pulse Resp BP Sys/Lopez Pulse Ox Last 24 Hr 98 F-99.9 F 77-81 18-18 114-138/81-93 98 PHYSICAL EXAM GENERAL: The patient is awake, alert, and fully oriented, in no acute distress. EYES: PEERLA: EOMI NECK: no lymphadenopathy LUNGS: slight coarse breath sounds B/L: HEART: Regular rate and rhythm, S1, S2 without murmur, rub or gallop. ABDOMEN: Soft, nontender, nondistended, normoactive bowel sounds, no guarding, no rebound, no hepatosplenomegaly, no masses. EXTREMITIES: 2+ pulses, warm, well-perfused, no edema. PSYCH: Normal mood, normal affect. SKIN: Warm, dry, normal turgor, no rashes or lesions noted. LABS Laboratory Results - last 24 hr 09/23/18 09/23/18 06:00 06:00 WBC 9.3 RBC 3.80 L Hgb 11.1 L Hct 32.9 L MCV 86.6 MCH 29.1 MCHC 33.6 RDW 14.0 Plt Count 339 MPV 7.6 Sodium 137 Potassium 3.9 Chloride 106 Carbon Dioxide 24 Anion Gap 7 L BUN 7 Creatinine 0.8 Est GFR (CKD-EPI)AfAm 129.51 Est GFR (CKD-EPI)NonAf 111.74 Random Glucose 82 Calcium 8.0 L CXR - R basal infiltrate Fever, Tmax 100.8, leukocytosis, WBC 18, HR > 100 Lactate 1.1 HOSPITAL COURSE: Date of Admission:09/20/18 38 y/o m with no pmh came to hospital with complaint of cough, sob and vomiting since three days. pt states that on e week ago he has sore throat with fever, headache and post nasal drip which kept ion getting worse over the period of time and 4 days ago he went to urgent care where he was diagnosed with viral infection but over last last three days he has developed non productive cough, vomiting and fever is getting worse, 102.6 documented in home. Pt also reports sob and now gets tired after walking few steps. Denies chest pain and palpitations.Pt also states that from last three days he is unable to keep any thing inside and is vomiting clear liquid which is not relevant with bouts of cough. Denies eating out, pain abdomen, diarrhoea. Denies abdominal distension. Patient states he is passing flatus. 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 Also reports headache when he coughs. Last time went to work on Wednesday. patient was started on ceftriaxone adn azithromycin for his R penumonia. He was aslo given duonebs and flonase. he spiked fevers for the first few dyas of his stat then stopped spiking. his symtoms improved; he still had some slight shortness of breath but imprvoed- he was discharged home with another 3 days of ceftin and azithromycin along with incentive spirometery Date of Discharge: 09/23/18 Minutes to complete discharge: 35 Discharge Summary Reason For Visit: PNEUMONIA Current Active Problems Pneumonia (Acute) Condition: Stable - Instructions Diet, Activity, Other Instructions: You came to the hospital with complaints of nausea/vomiting and shortness of breath and were found to have pneumonia. We have been treating you with IV antibiotics and your symptoms have improved. Please continue taking the antibiotics Ceftin 250mg twice a day and Azithromycin 250mg once a day for 3 more days Please use the incentive spirometer multiple times a day (10 times each session ) to help with your breathing We are referring you to a primary care physician that we would like you to follow up with within one week *if you begin to experience worsening shortness of breath, chest pains, nausea/ vomiting, fevers please return to the emergency room immediately Referrals: Dustin Kevin MD [Staff Physician] - Disposition: HOME - Home Medications Comprehensive Discharge Medication List: Ambulatory Orders Azithromycin [Zithromax 250mg Tablets -] 250 mg PO DAILY #3 tablet 09/23/18 Cefuroxime Axetil [Ceftin -] 250 mg PO BID #6 tablet 09/23/18 Problem List - Problems (1) Pneumonia Code(s): J18.9 - PNEUMONIA, UNSPECIFIED ORGANISM Qualifiers: Pneumonia type: due to unspecified organism Laterality: right Lung location: lower lobe of lung Qualified Code(s): J18.1 - Lobar pneumonia, unspecified organism This patient is new to me today: No Emergency Visit: Yes ED Registration Date: 09/20/18 Care time: The patient presented to the Emergency Department on the above date and was hospitalized for further evaluation of their emergent condition. Critical Care patient: No - Discharge Referral Referred to [facility] Med P.C[facility] No
[2018-09-23 13:01] VITALS: BP 147/88; PULSE 83; TEMP 98.6
--- NOTE | 2018-09-23 14:29 | PN ---
Teaching Attending Note Name of Resident: Yesi Longo ATTENDING PHYSICIAN STATEMENT I saw and evaluated the patient. I reviewed the resident's note and discussed the case with the resident. I agree with the resident's findings and plan as documented. SUBJECTIVE: SOB/cough improving. No further vomiting episodes. Fever resolved. OBJECTIVE: Afebrile, Hemodynamically Stable Last Vital Signs Temp Pulse Resp BP Pulse Ox 98.6 F 83 20 147/88 97 09/23/18 10:00 09/23/18 10:00 09/23/18 10:00 09/23/18 10:09/23/18 09:00 Heart - S1, S2, RRR Lungs - good air entry bilaterally - no crackles/wheeze. Abdomen - soft, non-tender. Bowel Sounds normal. Extremities - no edema, no calf tenderness. Laboratory Results - last 24 hr 09/23/18 09/23/18 06:00 06:00 WBC 9.3 RBC 3.80 L Hgb 11.1 L Hct 32.9 L MCV 86.6 MCH 29.1 MCHC 33.6 RDW 14.0 Plt Count 339 MPV 7.6 Sodium 137 Potassium 3.9 Chloride 106 Carbon Dioxide 24 Anion Gap 7 L BUN 7 Creatinine 0.8 Est GFR (CKD-EPI)AfAm 129.51 Est GFR (CKD-EPI)NonAf 111.74 Random Glucose 82 Calcium 8.0 L Discharge Medications Medication Instructions Recorded Azithromycin [Zithromax 250mg 250 mg PO DAILY #3 tablet 09/23/18 Tablets -] Cefuroxime Axetil [Ceftin -] 250 mg PO BID #6 tablet 09/23/18 ASSESSMENT AND PLAN: 38 year old male with no significant PMH presented with increasing dyspnea, cough, vomiting for 3 days on background upper respiratory tract symptoms for the week before. 1. Sepsis secondary to Community Acquired Pneumonia CXR - R basal infiltrate Fever, Tmax 103 on admission, now afebrile, leukocytosis, WBC 18 ---> 9.3, Tachycardia resolved. Lactate 1.1 Flu negative Urine legionella/Strep Ag negative Treated with IV Ceftriaxone/Azithromycin - for discharge on Ceftin and Azithromycin for 3 additional days 2. ANKUSH - likely pre-renal due to dehydration - resolved with IV fluids. 3. Hypophosphatemia - resolved s/p repletion. Sepsis resolved, clinically improving, Medically stable for discharge.
== END 2018-09-23 14:02 | disposition home or self-care (01) | DRG 871 ==
LOC: JER 06:34 → JERBED 10:42 → J7W 12:46
PROC: 3E0F7GC Introduction of Other Therapeutic Substance into Respiratory Tract, Via Natural or Artificial Opening (ICD-10-PCS; principal; 2018-09-21)
DX: A41.9 Sepsis, unspecified organism (principal); J18.1 Lobar pneumonia, unspecified organism; N17.9 Acute kidney failure, unspecified; Z80.3 Family history of malignant neoplasm of breast; R11.10 Vomiting, unspecified; E86.0 Dehydration; E83.39 Other disorders of phosphorus metabolism
CPT/HCPCS: 36415; 71046-TC-FY; 80048; 80053; 81003; 83605; 83690; 83735; 84100; 85025; 85027; 87040; 87086; 87804; 87899; 93005; 93010; 97116-GP; 97161-GP; 99283-25; J0131; J7030